=== PATIENT | female | born 1935 | race Caucasian/White ===

== ENCOUNTER 2017-02-27 17:53 | Emergency (ER) | payer MEDICARE, OTHER ==
[~2017-02-27] VITALS: Ht 167.6 cm; Wt 52.2 kg
[~2017-02-27 17:53] MED LIST: ALBUTEROL2.5 MG/3 M IH; ASPIRIN EC81 MG PO; CALCIUM600 MG PO; DEPAKOTE250 MG PO; DONEPEZIL HCL10 MG PO; FLOVENT DISKU250 MCG IH; FLOVENT HFA12 G1 INH; IRON236 MG PO; LEVAQUIN500 MG PO; LEVOTHYROXINE100 MCG PO; MULTI-VITAMIN1 EACH PO; NITROFURANTOIN50 MG PO; OMEPRAZOLE20 MG PO; OXYBUTYNIN CHLO15 MG PO; OXYBUTYNIN CHLOR5 MG PO; PRAVASTATIN SOD80 MG PO; PREDNISONE20 MG PO; SERTRALINE HCL50 MG PO; SPIRIVA18 MCG IH; TRAZODONE HCL50 MG PO; VITAMIN D22000 UNIT PO; ZOFRAN ODT4 MG SL
== END 2017-02-27 21:05 | disposition home or self-care (01) ==
LOC: ED 17:53
DX: R53.1 Weakness (principal); E03.9 Hypothyroidism, unspecified; J44.9 Chronic obstructive pulmonary disease, unspecified; Z98.51 Tubal ligation status; Z88.2 Allergy status to sulfonamides; Z79.52 Long term (current) use of systemic steroids; Z79.899 Other long term (current) drug therapy
CPT/HCPCS: 80053; 81001; 83605; 85025; 87077; 87088; 87186; 96360; 99284; J7030

== ENCOUNTER 2017-09-25 13:13 | Emergency (ER) | payer MEDICARE, OTHER ==
[~2017-09-25] VITALS: Ht 167.6 cm; Wt 52.2 kg
[2017-09-25] MEDS ORDERED: ZOFRAN ODT4 MG PO (16:29)
[2017-09-25] MEDS ORDERED: KEFLEX500 MG PO (16:29)
== END 2017-09-25 17:26 | disposition home or self-care (01) ==
LOC: ED 13:13
PROC: 0T9B70Z Drainage of Bladder with Drainage Device, Via Natural or Artificial Opening (ICD-10-PCS; principal; 2017-09-25)
DX: N39.0 Urinary tract infection, site not specified (principal); R11.2 Nausea with vomiting, unspecified; E03.9 Hypothyroidism, unspecified; J44.9 Chronic obstructive pulmonary disease, unspecified; Z88.2 Allergy status to sulfonamides; Z79.52 Long term (current) use of systemic steroids; Z79.899 Other long term (current) drug therapy; Z79.82 Long term (current) use of aspirin
CPT/HCPCS: 51701; 81001; 87077; 87088; 87186; 99283

== ENCOUNTER 2017-12-16 06:00 | Day surgery (SDC) | payer MEDICARE, OTHER ==
[~2017-12-16] VITALS: Ht 152.4 cm; Wt 48.5 kg
[~2017-12-16 06:00] MED LIST changes: +KEFLEX500 MG PO; +TROSPIUM CHLORI20 MG PO; +ZOFRAN ODT4 MG PO
[2017-12-16] MEDS ORDERED: FISH OIL 1,0001 EAC2 NG (06:11)
--- NOTE | 2017-12-16 08:20 | NUR ---
12/16/17 0820 Melia Bravo 0810 PT ARRIVED IN PACU AWAKE WITH NO C/O'S.
[2017-12-16] MEDS ORDERED: CIPRO500 MG PO (08:27)
--- NOTE | 2017-12-16 14:11 | OR ---
[facility] [address] [place], [place] [address] Signed DATE OF OPERATION: 12/16/2017 SURGEON: Darinel Patton MD PREOPERATIVE DIAGNOSES: 1. Overactive bladder. 2. Intrinsic sphincter deficiency. POSTOPERATIVE DIAGNOSES: 1. Overactive bladder. 2. Intrinsic sphincter deficiency. NAMES OF PROCEDURES: 1. Diagnostic cystoscopy. 2. Botox bladder injection, 100 units. ANESTHESIA: MAC. ESTIMATED BLOOD LOSS: Minimal. COMPLICATIONS: None. SPECIMENS: None. DRAINS: None. INDICATIONS FOR PROCEDURE: Ms. Medel is a very pleasant 82-year-old female, who presented to my clinic a few months ago with complaints of severe urinary incontinence. She underwent diagnostic cystoscopy with pelvic examination, which revealed severe intrinsic sphincter deficiency, along with detrusor instability and diminished compliance of the bladder. After long discussion with the patient and her watch caser, she has agreed to undergo cystoscopy with Botox bladder injection of 100 units in an attempt to lessen the severity of her incontinence. The patient understands that she will not become completely dry with this procedure due to her severe intrinsic sphincter deficiency. Electronically Signed By: DARINEL PATTON MD 12/16/17 1411 PATIENT NAME: DAMION MEDEL OPERATIVE REPORT DATE OF : 37 REPORT #: [id number] PHYSICIAN: DARINEL PATTON MD PCP: GLORIA ROJAS MD REPORT IS CONFIDENTIAL AND NOT TO BE RELEASED WITHOUT AUTHORIZATION [facility] [address] [place], [place] [address] Signed She presents today to undergo the procedure. OPERATIVE FINDINGS: 1. On cystoscopy, there was no evidence of any suspicious masses, lesions, or stones. She has grade 4 bladder wall trabeculation along with bilateral moderately sized Hutch diverticula. There are no suspicious masses or lesions within the bladder. 2. A total of 100 units of botulinum toxin was injected into the patient's bladder, avoiding the trigone, dome and ureteral orifices. The botulinum toxin was injected in 0.5 mL aliquots. 3. Genital examination revealed [id number] introital stenosis, along with vaginal atrophy. DESCRIPTION OF PROCEDURE: After informed consent was obtained, the patient was taken back to the operating room. [facility] table, where MAC anesthesia was induced. She was placed in the dorsal lithotomy position and her genitalia prepped and draped in the standard sterile fashion. Genital examination revealed rather severe introital stenosis. A 20 mL of lidocaine jelly was injected into her urethra. I then inserted a rigid cystoscope via a 22.5-Welsh sheath. A complete diagnostic cystoscopy was then performed. Please see above findings. The [employer] injection needle was then advanced through the scope and the needle was brought out to the length of 3 mm. The patient's bladder was then injected 0.5 mL aliquots throughout the lateral park and posterior wall of the bladder, avoiding the trigone and dome areas. The injections were performed without difficulty. A total of approximately 24 injections was performed. After all the botulinum toxin had been successfully injected, I irrigated the patient's bladder of small blood clots. The patient's bladder was then drained and the cystoscope was removed. The procedure was then terminated. The patient tolerated the procedure well without any complication. She will now be transferred to the postanesthesia care unit in stable condition. DISPOSITION: The patient will be discharged home today in stable condition when she awakes from MAC anesthetic. I discussed the details of today's procedure with both the patient's caregiver and the patient answered all of her questions. She was given Cipro 250 mg p.o. b.i.d. for a total of 5 days today. She will be scheduled to return to clinic in six weeks for her first postoperative visit. Darinel Patton MD Electronically Signed By: DARINEL PATTON MD 12/16/17 1411 PATIENT NAME: DAMION MEDEL OPERATIVE REPORT DATE OF : 37 REPORT #: [id number] PHYSICIAN: DARINEL PATTON MD PCP: GLORIA ROJAS MD REPORT IS CONFIDENTIAL AND NOT TO BE RELEASED WITHOUT AUTHORIZATION [address] [place], [place] [address] Signed SILVIA/CHEN /[id number] Copies: ~ Electronically Signed By: DARINEL PATTON MD 12/16/17 1411 PATIENT NAME: YOSELINDAMION MORGAN OPERATIVE REPORT DATE OF : 37 REPORT #: [id number] PHYSICIAN: DARINEL PATTON MD PCP: GLORIA ROJAS MD REPORT IS CONFIDENTIAL AND NOT TO BE RELEASED WITHOUT AUTHORIZATION
== END 2017-12-16 08:45 | disposition home or self-care (01) ==
LOC: DS 06:00
PROVIDERS: Urology
PROC: 3E0K8GC Introduction of Other Therapeutic Substance into Genitourinary Tract, Via Natural or Artificial Opening Endoscopic (ICD-10-PCS; principal; 2017-12-16 06:45)
DX: N32.81 Overactive bladder (principal); N36.42 Intrinsic sphincter deficiency (ISD); J44.9 Chronic obstructive pulmonary disease, unspecified; E78.5 Hyperlipidemia, unspecified; E03.9 Hypothyroidism, unspecified; D64.9 Anemia, unspecified; J45.909 Unspecified asthma, uncomplicated; Z79.82 Long term (current) use of aspirin; Z79.899 Other long term (current) drug therapy; Z88.2 Allergy status to sulfonamides
CPT/HCPCS: J0585; J0696; J2250; J2405; J2704; J3010; J7120

== ENCOUNTER 2018-08-18 05:45 | Day surgery (SDC) | payer MEDICARE, OTHER ==
[~2018-08-18] VITALS: Ht 152.4 cm; Wt 48.1 kg
--- NOTE | ~2018-08-18 | OR ---
[facility] [address] [place], [place] [address] Draft DATE OF OPERATION: 08/18/2018 SURGEON: Darinel Patton MD PREOPERATIVE DIAGNOSES: 1. Overactive bladder. 2. Intrinsic sphincter deficiency. POSTOPERATIVE DIAGNOSES: 1. Overactive bladder. 2. Intrinsic sphincter deficiency. PROCEDURES PERFORMED: Diagnostic cystoscopy with Botox bladder injection, 100 units. ANESTHESIA: MAC. ESTIMATED BLOOD LOSS: None. COMPLICATIONS: None. SPECIMENS: None. DRAINS: None. INDICATIONS FOR PROCEDURE: Jimena is a very pleasant 82-year-old female who is well known to me. She has a history of severe detrusor instability, along with an intrinsic sphincter dysfunction. She has undergone Botox bladder injection of 100 units one time before, and did respond to the medication. She understands that due to her intrinsic sphincter deficiency, that she will not be completely dry unless she undergoes surgical intervention for that issue as well. She presents today to undergo her 2nd Botox bladder injection. FINDINGS: 1. On cystoscopy, there was diffuse grade 5 bladder wall trabeculation, along with PATIENT NAME: JIMENA SOSA MINESH OPERATIVE REPORT DATE OF : 37 REPORT #: [id number] PHYSICIAN: DARINEL PATTON MD PCP: GLORIA ROJAS MD REPORT IS CONFIDENTIAL AND NOT TO BE RELEASED WITHOUT AUTHORIZATION [facility] [address] [place] [id number] Draft multiple bladder diverticula. Three of the bladder diverticula are at least 3 to 4 cm in size and quite deep. The remainder the bladder also appears very abnormal and there are multiple detrusor fibers noted and are easily seen within the bladder wall. There is no evidence of any suspicious masses, lesions, or stones. The bilateral ureteral orifices are difficult to visualize due to the extent of the bladder wall trabeculation. 2. A total of 100 units of botulinum toxin was injected into the patient's bladder, diluted with 10 mL of sterile saline injection. This was delivered to the detrusor muscle in 0.5 mL aliquots without difficulty. DESCRIPTION OF PROCEDURE: After informed consent was obtained, the patient was taken back to the operating room. She was transferred from the [facility] to the operative room table, where MAC anesthesia was induced. She was placed in the dorsal lithotomy position and her genitalia were prepped and draped in standard sterile fashion. Using a 30-degree lens on a 22.5-Slovenian introducer, rigid cystoscope was inserted through the urethra and into her bladder under direct visualization. Panendoscopic views of bladder then obtained. Please see the findings. The patient's bladder was drained of all urine and then was filled again with sterile water. I then began injecting correction. I advanced the [employer] needle through the scope and into the patient's bladder. A 4 mm needle was then used to inject the Botox 100 units of botulinum toxin throughout the bladder wall, particularly at the posterior lateral bilateral park of the bladder. I did avoid injection of the dome and the trigone areas of the bladder poor per aws solution architect recommendations. The procedure went well and without complication. Once all the injections were placed, the needle was removed and the patient's bladder was then irrigated gently with additional sterile water. The patient's bladder was then drained and the cystoscope was removed. The procedure was then terminated. The patient tolerated the procedure well without any complication. She will now be transferred to the postanesthesia care unit in stable condition. DISPOSITION: I discussed the details of today's procedure with the patient's signs cleaner and answered all of her questions. Jimena will be sent home with Cipro 500 mg p.o. b.i.d. for a total of 5 days for UTI prophylaxis. She will be scheduled to return to clinic on October 13 at 3 p.m. to assess her response to her 2nd Botox bladder injection. MD SILVIA Smallwood/CHEN PATIENT NAME: JIMENA SOSA MINESH OPERATIVE REPORT DATE OF : 37 REPORT #: [id number] PHYSICIAN: DARINEL PATTON MD PCP: GLORIA ROJAS MD REPORT IS CONFIDENTIAL AND NOT TO BE RELEASED WITHOUT AUTHORIZATION [address] [place], [place] [address] Draft /[id number] Copies: ~ PATIENT NAME: JIMENA SOSA OPERATIVE REPORT DATE OF : 37 REPORT #: [id number] PHYSICIAN: DARINEL PATTON MD PCP: GLORIA ROJAS MD REPORT IS CONFIDENTIAL AND NOT TO BE RELEASED WITHOUT AUTHORIZATION
[~2018-08-18 05:45] MED LIST changes: +CIPRO500 MG PO; +FISH OIL 1,0001 EAC2 NG; +MACRODANTIN100 MG PO; +ZOLOFT100 MG PO
[2018-08-18] MEDS ORDERED: DEPAKOTE125 MG PO (06:02)
--- NOTE | 2018-08-18 08:58 | NUR ---
[facility]U WIDE AWAKE WITH NO C/O'S. 0825 C/O URGE TO VOID. UP TO BATHROOM WITH ONE PERSON ASSIST. VOIDED AND GETTING DRESSED WITH STAND BY ASSIST. 0830 DC INSTRUCTIONS GIVEN TO PT/CAREGIVER. ALL QUESTIONS ANSWERED. 0835 LEFT VIA W/C WITH RN. STOPPED AT BATHROOM AND PUT PULL UP ON WITH STAND BY ASSIST BY RN AND CAREGIVER.
--- NOTE | 2018-08-18 11:49 | NUR ---
PT ALERT AND ORIENTED. SHE IS SUPPORTED BY FAMILY AT BS. PT ANSWERED MOSTLY WITH YES AND NO TO MY QUESTIONS. LOOKED SOMETIMES AT FAMILY FOR ANSWER. I EXTENDED A BLESSING, WILL FOLLOW NEEDED
== END 2018-08-18 08:35 | disposition home or self-care (01) ==
LOC: DS 05:45 → OPS 05:45 → DS 06:45 → OPS 08:35
PROVIDERS: Urology
PROC: 3E0K8GC Introduction of Other Therapeutic Substance into Genitourinary Tract, Via Natural or Artificial Opening Endoscopic (ICD-10-PCS; principal; 2018-08-18 06:45)
DX: N32.81 Overactive bladder (principal); N36.42 Intrinsic sphincter deficiency (ISD); N39.41 Urge incontinence; N32.3 Diverticulum of bladder; J44.9 Chronic obstructive pulmonary disease, unspecified; E78.5 Hyperlipidemia, unspecified; E03.9 Hypothyroidism, unspecified; Z79.899 Other long term (current) drug therapy; Z88.2 Allergy status to sulfonamides; Z79.82 Long term (current) use of aspirin
CPT/HCPCS: 00910; 71046; J0585; J0696; J2405; J2704; J3010; J7120